=== PATIENT | male | born 1945 | race Caucasian/White ===

== ENCOUNTER 2021-11-03 11:49 | Emergency (ER) | payer MEDICARE, SELFPAY ==
[2021-11-03 12:04] VITALS: BP 152/80; PULSE 76; RESP 16; TEMP 36.1; O2SAT 100
--- NOTE | 2021-11-03 13:30 | PC.NURSE ---
Patient states he is going to leave and attempt to go to the bathroom elsewhere. Patient educated to return to ED if symptoms continue or worsen.
== END 2021-11-03 13:30 | disposition left against medical advice (07) ==
LOC: ANHED 14:04
DX: K59.00 Constipation, unspecified (principal)
CPT/HCPCS: 99199

== ENCOUNTER 2021-11-03 18:18 | Emergency (ER) | payer MEDICARE, OTHER, SELFPAY ==
--- NOTE | ~2021-11-03 | CT_ITS ---
EXAMINATION: CT abdomen pelvis w con EXAM DATE: 11/03/2021 23:30 INDICATION: Abdominal pain. TECHNIQUE: Spiral CT of the abdomen and pelvis was performed following intravenous injection of 100 m L Omnipaque 350. Axial, coronal and sagittal images of the abdomen and pelvis were reviewed. The do se-length product (DLP) for this examination was 1156.42 mGy-cm. The exposure was tailored according to patient size (auto mA exposure control), and iterative reconstruction (ASIR) was used as addition al dose reduction technique. There is no prior study for comparison. FINDINGS: Cirrhosis, ascites, portal hypertension with dilated portal venous system. There is portal venous thrombus which is nonocclusive, but extension into superior mesenteric vein and multiple of it s branches appears more occlusive and there is extensive mesenteric edema. There is edema of the ileu m which is drained by this and also the ascending and transverse colon. Superior mesenteric artery wi sunni patent. There is mild to moderate descending/sigmoid colonic diverticulosis. There is no adjacent inflammato ry change to suggest diverticulitis. Small amount of ascites. Cholecystectomy clips. Splenomegaly. Bi lateral renal cysts. 5 mm right mid calyceal stone. No hydronephrosis. Mild prostatomegaly. Bladder u nremarkable. No pelvic or retroperitoneal lymphadenopathy. Mild to moderate aortic arterial sclerosis . Lung bases unremarkable. There are no osteoblastic or osteolytic lesions identified. IMPRESSION: 1. 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 Correlate with lactate levels. No pneumatosis or perforation. More chronic appearing portal venous t hrombus contiguous to this. 2. Cirrhosis, portal hypertension, splenomegaly and ascites. 3. Colonic diverticulosis. 4. Right nephrolithiasis. I discussed the case with Dr. Lisa at 11/03/2021 23:41 RECORDS MANAGEMENT ASSISTANT. Reviewed, dictated and finalized at location A. RDS MANAGEMENT ASSISTANT IMPRESSION: 1. Acute appearing intraluminal thrombosis, occlusion of superior mesenteric v ein and its branches, moderate amount of ileal, ascending and transverse coloni c wall edema which could be ischemic change. Correlate with lactate levels. No pneumatosis or perforation. More chronic appearing portal venous thrombus radha guous to this. 2. Cirrhosis, portal hypertension, splenomegaly and ascites. 3. Colonic diverticulosis. 4. Right nephrolithiasis. I discussed the case with Dr. Lisa at 11/03/2021 23:41 RECORDS MANAGEMENT ASSISTANT.
[2021-11-03 18:22] VITALS: BP 159/87; PULSE 92; RESP 18; TEMP 36.4; O2SAT 100
[2021-11-03 21:40] VITALS: BP 162/75; PULSE 80; RESP 14; O2SAT 97
[2021-11-03] MEDS: ONDANSETRON INJ 4 MG/2 ML VIAL IV PUSH (21:51)
[2021-11-03] MEDS: HYDROmorphone HCL INJ (*CRX) 1 MG/ML SYR 0.5 MG IV PUSH ×2 (21:51→23:17)
[2021-11-03 22:02] LABS: Basophils Percent Auto 0.1 % (0.2-1.2); Hematocrit 42.7 % (42.0-52.0); Hemoglobin 14.4 g/dL (14.0-18.0); Immature Granulocyte Absolute 0.07 K/mm3 (0.00-0.031); Immature Granulocyte Percent A 0.5 % (0-0.5); Immature Platelet Fraction Pct 4.6 % (0.9-11.2); Lymphocytes Absolute Auto 0.27 K/mm3 (0.9-3.2); Mean Corpuscular HGB Conc 33.7 g/dl (32-36); Mean Corpuscular Volume 82.9 fl (80-100); Mean Platelet Volume 10.7 fl (7.4-10.4); Monocytes Absolute Auto 0.7 K/mm3 (0.1-0.6); Monocytes Percent Auto 5.4 % (2.6-8.5); Neutrophils Absolute Auto 12.7 K/mm3 (1.3-6.7); Platelet Count Result 122 k/mm3 (150-375); Red Blood Count 5.15 M/mm3 (4.6-6.20); Red Cell Distribution Width 15.9 % (11.5-14.5); White Blood Count 13.8 K/mm3 (4.5-10.0)
--- NOTE | 2021-11-03 22:26 | PC.NURSE ---
per lab green and willett both hemolyzed - gautam to redraw at this time.
[2021-11-03 22:33] LABS: INR 1.2; Prothrombin Time 15.4 Seconds (11.1-14.7)
[2021-11-03 22:56] VITALS: BP 153/77; PULSE 89; RESP 21; O2SAT 96
[2021-11-03 23:05] LABS: Alanine Aminotransferase 21 U/L (4-50); Albumin Level 4.1 g/dL (3.5-5.1); Alkaline Phosphatase 79 U/L (38-126); Anion Gap 12 mmol/L (8-16); Aspartate Amino Transferase 26 U/L (17-59); Bilirubin,Total 3.2 mg/dL (0.2-1.3); Blood Urea Nitrogen 15 mg/dL (9-20); Calcium 9.3 mg/dL (8.4-10.2); Carbon Dioxide 21 mmol/L (22-30); Chloride 99 mmol/L (98-107); Estimated CRCL calculation 80 ml/min; Estimated Glomerular Filt Rate > 60; Glucose 277 mg/dL (65-110); Lipase 22 U/L (23-300); Potassium 4.4 mmol/L (3.4-5.0); Sodium 132 mmol/L (137-145)
[2021-11-03 23:06] LABS: Lactic Acid Reflex 3.2 mmol/L (0.7-2.1)
[2021-11-03] MEDS: SODIUM CHLORIDE 0.9% IV 1,000 ML 999 ML IV CONT (23:45)
[2021-11-04 00:24] VITALS: BP 154/77; PULSE 85; O2SAT 100
--- NOTE | 2021-11-04 00:26 | ED.ABDPAIN ---
HPI - Abdominal Pain General Chief Complaint: Abdominal Pain Stated Complaint: abd pain Time Seen by Provider: 11/03/21 21:21 Source: patient and family Mode of arrival: ambulatory Limitations: no limitations History of Present Illness HPI narrative: 76-year-old with a history of hypertension, CAD s/p CABG here with complaints of abdominal pain for last 3 days. Patient states she feels constipated. Patient states that he was here in the emergency room waited for few hours but was unable to sit in the waiting room as he had a long waiting hours patient left home. States that he has taken laxatives with no relief. Patient now having significant mid abdomen pain. He denies any fever or chills. Has occasional nausea but no significant vomiting. MD elicited complaint: abdominal pain Pertinent past history: constipation Onset (ago): day(s) (3) Pain Consistency: constant Location: epigastric and other (Mid abdomen) Severity: severe Quality: aching Radiation: none Migration to: no migration Exacerbating factors: nothing Relieving factors: nothing Associated symptoms: nausea Related Data Home Medications Medication Instructions Recorded Confirmed allopurinol 11/03/21 11/03/21 Allergies Allergy/AdvReac Type Severity Reaction Status Date / Time No Known Allergies Allergy Verified 11/03/21 23:12 Review of Systems Review of Systems: All systems reviewed & are unremarkable except as noted in HPI and below Constitutional: Constitutional: Reports no additional constitutional complaints Eyes: Eyes: Reports no additional eye complaints ENT: Reports system reviewed and no additional complaints, except as documented Cardiovascular: Cardiovascular: Reports no additional cardiovascular complaints Respiratory: Respiratory: Reports no additional respiratory complaints Gastrointestinal: Gastrointestinal: Reports as per HPI Musculoskeletal: Musculoskeletal: Reports no additional musculoskeletal complaints Integumentary/Breasts: Skin/Breast: Reports system reviewed and no additional complaints, except as docu PMFSH Past Medical History Medical History CAD (coronary artery disease) Exam Narrative: GENERAL: Well-appearing, well-nourished, and in no moderate distress secondary to pain HEAD: Normocephalic, atraumatic. EYES: PERRLA and EOMI. NECK: Supple. CHEST: Clear to auscultation. No respiratory distress. HEART: Regular rate and rhythm. No murmur heard. Normal peripheral pulses. ABDOMEN: Soft, Mid abdomen tender, nondistended, normal active bowel sounds. EXTREMITIES: Normal range of motion. No edema. SKIN: Warm, dry, no rash. NEURO: No focal deficits. Alert and oriented x3. PSYCH: Normal mood and affect. Course Course Emergency Course: Patient was given IV Dilaudid couple times his pain is resolved. Informed him and his daughter about his lab work and CT scan findings. We will transfer him to [facility] further management Vital Signs Vital signs: Vital Signs Temperature 36.4 C L 11/03/21 18:22 Pulse Rate 92 11/03/21 18:22 Respiratory Rate 18 11/03/21 18:22 Blood Pressure 159/87 H 11/03/21 18:22 Pulse Oximetry 100 11/03/21 18:22 Temperature 36.4 C L 11/03/21 18:22 Pulse Rate 85 11/04/21 00:24 Respiratory Rate 21 H 11/03/21 22:56 Blood Pressure 154/77 H 11/04/21 00:24 Pulse Oximetry 100 11/04/21 00:24 MDM - Abdominal Pain Differential Diagnosis Differential diagnosis: Likely abdominal pain, constipation, small bowel obstruction and other (Ischemic bowel) Lab Data Attestation: I reviewed the patient's lab results. Result diagrams: 11/03/21 21:54 11/03/21 22:40 Labs: Lab Results 11/03/21 11/03/21 11/03/21 Range/Units 21:54 22:15 22:40 WBC 13.8 H (4.5-10.0) K/mm3 RBC 5.15 (4.6-6.20) M/mm3 Hgb 14.4 (14.0-18.0) g/dL Hct 42.7 (42.0-52.0) % MCV 82.9
[2021-11-04] MEDS: HYDROmorphone HCL INJ (*CRX) 1 MG/ML SYR 0.5 MG IV PUSH (00:29)
[2021-11-04 00:44] LABS: Add Urine Microscopic? YES; Appearance Urine Clear (Clear); Bilirubin Urine Negative (Negative); Blood Urine Negative (Negative); Color Urine Yellow (Yellow); Glucose Urine UA 3+ mg/dL (Negative); Hyaline Casts Urine 15-19 /lpf; Ketones Urine 1+ mg/dL (Negative); Leukocyte Esterase Ur Negative LEU/UL (Negative); Mucus Urine Few /lpf; Nitrate Urine Negative (Negative); Protein Urine 1+ mg/dL (Negative); WBC Urine 0-3 /hpf
[2021-11-04 01:00] VITALS: BP 134/76; PULSE 92; RESP 17; O2SAT 98
--- NOTE | 2021-11-04 01:10 | PC.NURSE ---
Addendum entered by Paige Diego 11/04/21 01:36: 0135: Called [facility] for status...ETA en route, approximately 5 minutes. Addendum entered by Paige Diego 11/04/21 01:16: 0113: Called [facility] to transport...DECLINED. Original Note: 0027: Called [facility] to transport patient to [place] [facility] ([facility] per EDP)...ETA approximately 30 minutes. 0106: Called [facility] for status...ETA approximate another 30 minutes, waiting for next ALS unit to become available. 0108: Called [facility] to transport...DECLINED. 0109: Called [facility] to transport...DECLINED.
[2021-11-04 01:30] VITALS: BP 136/67; PULSE 88; RESP 14; O2SAT 97
[2021-11-04 01:43] LABS: Reflex Lactic Acid Yes or No Add Lactic
== END 2021-11-04 01:30 | disposition short-term general hospital (02) ==
PROVIDERS: Emergency Provider Family Medicine
DX: K55.039 Acute (reversible) ischemia of large intestine, extent unspecified (principal); Z95.1 Presence of aortocoronary bypass graft; I25.10 Atherosclerotic heart disease of native coronary artery without angina pectoris; I10 Essential (primary) hypertension; I99.8 Other disorder of circulatory system; N20.0 Calculus of kidney; K57.90 Diverticulosis of intestine, part unspecified, without perforation or abscess without bleeding
CPT/HCPCS: 36415; 74177; 80053; 81001; 83605; 83690; 85025; 85055; 85610; 96361; 96365; 96375; 96376; 99285; J1170; J2405; J2543; J7030; Q9967